=== PATIENT | female | born 1955 | race Caucasian/White ===

== ENCOUNTER → 2017-12-17 | Day surgery (SDC) | payer OTHER ==
[~2017-12-17] MED LIST: ESTRADIOL0.5 MG PO; FENTANYL CITRATE/PF 100MCG/2 ML INJ ONE; FOSINOPRIL SODI20 MG PO; LIPITOR20 MG PO; METOCLOPRAMIDE HCL 10 MG/2ML VIAL ONE; MIDAZOLAM HCL 2 MG/2 ML VIAL ONE; PANTOPRAZOLE 40 MG 10ML VIAL ONE; PANTOPRAZOLE SO40 MG PO; PROPOFOL IV EMULSION 10 MG/ML 50 ML VIAL ONE
--- NOTE | 2017-12-17 09:16 | Operative Report ---
DATE OF PROCEDURE: December 17, 2017 REFERRING PHYSICIAN: Tirso Honeycutt MD PROCEDURE PERFORMED: Esophagogastroduodenoscopy with esophageal dilatation and biopsies. INDICATIONS FOR EGD: Dysphagia, heartburn, indigestion. MEDICATION: Patient was done under MAC. Please see anesthesiologist's note. PROCEDURE: With the patient in the left lateral decubitus position, the flexible fiberoptic Olympus gastroscope was introduced into the esophagus under direct visualization without any difficulty. Some linear erosions were noted in the distal esophagus. There were also some tongues of velvety red mucosa extending proximally from the GE junction, and biopsies were obtained to rule out Cook's esophagus. One of the biopsy sites bled, and excellent hemostasis was documented after sprinkling the site with 1:10,000 epinephrine. The scope was then advanced with ease into the stomach. Mucosa overlying the antrum and the body revealed some diffuse erythema and mild to moderate edema, and biopsies were obtained and sent to stain for H. pylori. Pylorus was of normal contour and shape. It was intubated with ease, and the scope was advanced all the way to the 2nd portion of the duodenum. The scope was then withdrawn slowly. Mucosa overlying the proximal 2nd portion and the duodenal bulb appeared to be within normal limits. The scope was then withdrawn back into the stomach and retroflexed. The patient appears to have had a Lap-Band, which was noted to be in good position. The scope was then straightened out. It was subsequently withdrawn. The esophagus was then dilated to size 52-Serbian Lazaro. Patient tolerated the procedure well. IMPRESSION 1. Erosive esophagitis. 2. Rule out Cook's esophagus. Biopsy site bled, and excellent hemostasis was attained after sprinkling with 1:10,000 epinephrine. 3. Lap-Band intact. 4. Esophagus dilated to size 52-Serbian Lazaro. 5. Gastritis, biopsied. Biopsies sent to stain for H. pylori. PLAN: Follow up histology. Increase Protonix to 40 mg 1 p.o. a.c. b.i.d. Will discuss with the patient regarding deflating or removing the Lap-Band. Job#: [id number] cc:TIRSO HONEYCUTT MD
--- OUTSIDE RECORDS SUMMARY | 2018-03-30 14:03 | XMS REPORT ---
Author Author [facility] Address Unknown Phone Unavailable Care Team Providers Care Casting And Curing Operator Name Role Phone AMMY SALAZAR Unavailable Unavailable Problems This patient has no known problems. Allergies, Adverse Reactions, Alerts This patient has no known allergies or adverse reactions. Medications This patient has no known medications. Results Test Description Test Time Test Comments Text Results Atomic Results Result Comments FOREARM LEFT 2 VIEW [place] [address] Patient Name: EDWARD RODRIGUEZ MR #: [id number] : 1955 Age/Sex: 61/F Req # : [id number] Adm Physician: Ordered by: AMMY SALAZAR MD Report #: [id number] Location: [facility] Room/Bed: Procedure: [id number] DX/FOREARM LEFT 2 VIEW Exam Date: 03/15/17 Exam Time : 1130 REPORT STATUS: Signed PROCEDURE: X-RAY LEFT FOREARM, TWO VIEWS COMPARISON: None. INDICATIONS: FALL FINDINGS: No acute, displaced fracture or dislocation. Partially visualized elbow and wrist joints are unremarkable. No soft tissue abnormalities. CONCLUSION: No acute osseous abnormality. Dictated by: Gloria Gandhi M.D. on 03/15/2017 at 12:14 Electronically approved by: Gloria Gandhi M.D. on 03/15/2017 at 12:14 Dictated By: GLORIA GANDHI MD 13 Transcribed By: FILIBERTO on 03/15/171213 COPY TO: AMMY SALAZAR MD HAND 3+ VIEWS LEFT [place] [address] Patient Name: EDWARD RODRIGUEZ MR #: [id number] : 1955 Age/Sex: 61/F Req # : [id number] Adm Physician: Ordered by: AMMY SALAZAR MD Report #: [id number] Location: [facility] Room/Bed: Procedure: [id number] DX/HAND 3+ VIEWS LEFT Exam Date: 03/15/17 Exam Time : 1130 REPORT STATUS: Signed PROCEDURE: X-RAY LEFT HAND, THREE OR MORE VIEWS COMPARISON: None. INDICATIONS: FALL FINDINGS: No acute, displaced fracture or dislocation. Appropriate alignment between the distal radius, lunate, and capitate is maintained on the lateral radiograph. Scattered degenerative changes throughout the interphalangeal joints. Soft tissues are unremarkable. CONCLUSION: No acute osseous abnormality. Dictated by: Gloria Gandhi M.D. on 03/15/2017 at 12:16 Electronically approved by: Gloria Gandhi M.D. on 03/15/2017 at 12:16 Dictated By: GLORIA GANDHI MD 15 Transcribed By: FILIBERTO on 03/15/171215 COPY TO: AMMY SALAZAR MD
== END | disposition home or self-care (01) ==
LOC: OR 05:52
PROVIDERS: ATTEND Internal Medicine Gastroenterology
DX: K21.0 Gastro-esophageal reflux disease with esophagitis (principal); K29.70 Gastritis, unspecified, without bleeding; K22.10 Ulcer of esophagus without bleeding; Z98.84 Bariatric surgery status; I10 Essential (primary) hypertension; N20.0 Calculus of kidney; F41.9 Anxiety disorder, unspecified; Z88.5 Allergy status to narcotic agent; Z01.810 Encounter for preprocedural cardiovascular examination
CPT/HCPCS: 43239; 43450; 93005; J2250; J2765

== ENCOUNTER → 2020-04-08 | Outpatient (CLI) | payer MEDICARE, OTHER ==
[~2020-04-08] MED LIST changes: -FENTANYL CITRATE/PF 100MCG/2 ML INJ ONE; -METOCLOPRAMIDE HCL 10 MG/2ML VIAL ONE; -MIDAZOLAM HCL 2 MG/2 ML VIAL ONE; -PANTOPRAZOLE 40 MG 10ML VIAL ONE; -PROPOFOL IV EMULSION 10 MG/ML 50 ML VIAL ONE
--- NOTE | 2020-04-08 11:33 | Diagnostic Imaging Report ---
Upper GI, 04/08/2020. History: Reflux. Discussion: The patient was given thick barium to drink in upright position. Multiple images of the esophagus and proximal stomach were obtained. Fluoro time: 0.07 min. Dose: 9.6 mGy (VINCENZO) There is diffuse dilatation of the esophagus, with tortuosity of the distal portion esophagus. A gastric lap band is present near the GE junction. The gastric lap band lumen measures less than 4 mm, allowing only a very minimal amount of contrast passage into the proximal stomach, even after waiting more than 5 minutes. Evaluation of esophageal mucosa is limited due to retention of dense contrast throughout. IMPRESSION: Diffuse esophageal dilatation with small gastric lap band lumen low-lying only minimal passage of contrast into the stomach. Consider lap band lumen adjustment. Signed by: Samuel Solares on 04/08/2020 11:30 AM
== END ==
LOC: DX 09:59
PROVIDERS: ATTEND Internal Medicine
DX: K21.00 Gastro-esophageal reflux disease with esophagitis, without bleeding (principal); Z11.59 Encounter for screening for other viral diseases
CPT/HCPCS: 74246; U0002

== ENCOUNTER → 2020-04-19 | Day surgery (SDC) | payer MEDICARE, OTHER ==
[2020-04-16 14:43] LABS: BASOPHILS # (AUTO) 0.1 (0.0-0.1); BASOPHILS % 0.6 % (0.0-1.0); EOSINOPHILS # (AUTO) 0.1 (0.0-0.4); EOSINOPHILS % 0.7 % (0.0-6.0); HEMATOCRIT 35.4 % (34.2-44.1); HEMOGLOBIN 10.9 g/dL (12.0-16.0); LYMPHOCYTES # (AUTO) 2.6 (1.0-3.2); LYMPHOCYTES % 26.3 % (18.0-39.1); MEAN CORPUSCULAR HEMOGLOBIN 24.9 pg (28-32); MEAN CORPUSCULAR HGB CONC 30.8 g/dL (31-35); MEAN CORPUSCULAR VOLUME 80.8 fL (81-99); MONOCYTES # (AUTO) 0.8 (0.2-0.8); MONOCYTES % 7.8 % (4.4-11.3); NEUTROPHILS # (AUTO) 6.4 (2.1-6.9); NEUTROPHILS % 64.2 % (38.7-80.0); PLATELET COUNT 332 x10e3/uL (140-360); RED BLOOD COUNT 4.38 x10e6/uL (3.6-5.1); RED CELL DISTRIBUTION WIDTH 17.8 % (11.7-14.4)
[~2020-04-19] MED LIST changes: +CYMBALTA30 MG PO; +FENTANYL CITRATE/PF 100MCG/2 ML INJ ONE; +LIDOCAINE HCL 2% LOCAL INJ 5 ML SDV VIAL INJ ONE; +MIDAZOLAM HCL 2 MG/2 ML VIAL ONE; +PROPOFOL IV EMULSION 10 MG/ML 20 ML VIAL ONE; +SUCRALFATE1 GM PO
[2020-04-19 09:21] VITALS: BP 120/76
--- NOTE | 2020-04-19 10:05 | Operative Report ---
DATE OF PROCEDURE: 04/19/2020 SURGEON: Paul Penn MD PROCEDURE: EGD with esophageal dilatation. INDICATIONS FOR EGD: Dysphagia, nausea, the patient is status post lap band. MEDICATIONS: The patient was done under MAC, please see anesthesiologist's note. PROCEDURE IN DETAIL: With the patient in left lateral decubitus position, a flexible fiberoptic Olympus gastroscope was introduced into the esophagus under direct visualization without any difficulty. Moderate amount of liquid debris was noted to be retained in the distal esophagus, which was suctioned. One erosion was noted in the distal esophagus. The scope was then advanced with ease into the stomach with gentle persistent pressure. Mucosa overlying the antrum and the body revealed some patchy erythema and low-grade edema, and biopsies were obtained and sent to stain for H. pylori. Two minute polyps were noted in the distal body and that were partially excised with cold biopsy forceps. Pylorus was of normal contour and shape, it was intubated with ease and the scope was advanced all the way to the second portion of the duodenum. The scope was then withdrawn slowly, and mucosa overlying the proximal second portion and the duodenal bulb appeared to be within normal limits. The scope was then withdrawn back into the stomach and retroflexed, and the lap band was noted to be intact and in good position. The scope was then straightened out. The esophagus was then dilated to size 16 Savary over a wire. The scope was subsequently withdrawn. The patient tolerated the procedure well. IMPRESSION: 1. Distal erosive esophagitis. 2. Moderate amount of liquid debris, retained above the lap band. 3. Esophagus dilated to size 16 Savary over a wire. 4. Gastritis, biopsied, biopsies sent to stain for H. pylori. 5. Gastric polyps, minute, distal body, hyperplastic-appearing, partially excised with the cold biopsy forceps. PLAN: 1. Follow up histology. 2. Increase Protonix to 40 mg one p.o. a.c. b.i.d. 3. The patient will need lap band adjustment or removal. Paul Penn MD [facility] [place]/ROSIOL /[id number] cc: Tirso Honeycutt MD
== END | disposition home or self-care (01) ==
LOC: ENDO 06:15
PROVIDERS: ATTEND Internal Medicine Gastroenterology
DX: K29.70 Gastritis, unspecified, without bleeding (principal); K31.7 Polyp of stomach and duodenum; K22.10 Ulcer of esophagus without bleeding; K22.8 Other specified diseases of esophagus; K31.89 Other diseases of stomach and duodenum; K21.9 Gastro-esophageal reflux disease without esophagitis; Z98.84 Bariatric surgery status; K59.09 Other constipation; E78.5 Hyperlipidemia, unspecified; I10 Essential (primary) hypertension; F32.9 Major depressive disorder, single episode, unspecified; Z88.6 Allergy status to analgesic agent; Z01.812 Encounter for preprocedural laboratory examination; Z11.59 Encounter for screening for other viral diseases
CPT/HCPCS: 36415; 43239; 43248; 85025; 88305; 88312; J2001; J2250; J2704; J3010; U0002; 43450

== ENCOUNTER → 2025-04-24 | Outpatient (REF) | payer MEDICARE ==
[~2025-04-24] MED LIST changes: -FENTANYL CITRATE/PF 100MCG/2 ML INJ ONE; -LIDOCAINE HCL 2% LOCAL INJ 5 ML SDV VIAL INJ ONE; -MIDAZOLAM HCL 2 MG/2 ML VIAL ONE; -PROPOFOL IV EMULSION 10 MG/ML 20 ML VIAL ONE
== END ==
LOC: CARD 12:06
PROVIDERS: ATTEND Internal Medicine
DX: R42 Dizziness and giddiness (principal)
CPT/HCPCS: 93880